=== PATIENT | female | born 1985 | race Caucasian/White ===

== ENCOUNTER → 2020-05-09 | Outpatient (CLI) | payer BC ==
[~2020-05-09] MED LIST: HYDROCHLOROTHIA25 MG PO; LISINOPRIL10 MG PO; METOPROLOL TART25 MG PO
== END ==
LOC: KOH-I 10:19
DX: R74.8 Abnormal levels of other serum enzymes (principal); K76.0 Fatty (change of) liver, not elsewhere classified
CPT/HCPCS: 76705

== ENCOUNTER → 2020-05-19 | Outpatient (CLI) | payer BC | LOC: ECHO 13:00 | DX: R94.31 Abnormal electrocardiogram [ECG] [EKG] (principal); I11.9 Hypertensive heart disease without heart failure | CPT/HCPCS: ECHO; 93306 ==

== ENCOUNTER → 2020-11-06 | Outpatient (CLI) | payer BC ==
[2020-11-06 10:11] LABS: BUN/CREATININE RATIO 13 (0-10)
[2020-11-07 08:15] LABS: CORTISOL 9.3 ug/dL (.)
[2020-11-07 11:15] LABS: CREATININE, URINE 97.6 mg/dL (Not Estab.)
== END ==
LOC: LAB 08:33
PROVIDERS: Internal Medicine Nephrology
DX: I10 Essential (primary) hypertension (principal)
CPT/HCPCS: 36415; 80048; 81001; 82043; 82088; 82533; 82570; 83835; 84244

== ENCOUNTER → 2021-03-22 | Outpatient (CLI) | payer BC ==
[2021-03-23 06:11] LABS: CALCIUM, SERUM 10.2 mg/dL (8.7-10.2); CREATININE, SERUM 0.67 mg/dL (0.57-1.00); POTASSIUM, SERUM 4.6 mmol/L (3.5-5.2)
[2021-03-23 10:14] LABS: CREATININE, URINE 39.5 mg/dL (Not Estab.)
== END ==
LOC: LAB 08:40
PROVIDERS: Internal Medicine Nephrology
DX: I10 Essential (primary) hypertension (principal)
CPT/HCPCS: 36415; 80048; 82043; 82570

== ENCOUNTER → 2021-08-28 | Outpatient (CLI) | payer BC ==
[2021-08-28 10:15] LABS: BUN/CREATININE RATIO 18 (0-10)
[2021-08-29 09:15] LABS: CREATININE, URINE 107.3 mg/dL (Not Estab.)
== END ==
LOC: LAB 09:30
PROVIDERS: Internal Medicine Nephrology
DX: E55.9 Vitamin D deficiency, unspecified (principal); I10 Essential (primary) hypertension
CPT/HCPCS: 36415; 80048; 82043; 82570